=== PATIENT | female | born 1955 | race Caucasian/White ===

== ENCOUNTER 2023-10-29 17:21 | Inpatient (IN) | payer MEDICARE, OTHER ==
[~2023-10-29 17:21] MED LIST: Albuterol/Ipratropium 3.0-0.5 MG/3 ML Neb Soln ONE; Racepinephrine 2.25% 0.5 ML Neb Soln ONE; methylPREDNISolone Sodium Succinate 125 MG/2 ML SDV ONE
[2023-10-29] MEDS: Racepinephrine 2.25% 0.5 ML Neb Soln NEB ONE (17:21)
[2023-10-29] MEDS: methylPREDNISolone Sodium Succinate 125 MG/2 ML SDV IVPUSH ONE (17:21)
[2023-10-29] MEDS: Albuterol/Ipratropium 3.0-0.5 MG/3 ML Neb Soln NEB ONE (17:21)
[2023-10-29 17:31] LABS: BASOPHILS ABSOLUTE AUTO 0.03 K/uL (0.00-0.10); BASOPHILS PERCENT AUTO 0.2 % (0.1-1.3); EOSINOPHILS ABSOLUTE AUTO 0.06 K/uL (0.00-0.40); EOSINOPHILS PERCENT AUTO 0.4 % (0.0-5.4); HEMATOCRIT 39.7 % (34.3-46.0); HEMOGLOBIN 13.9 g/dL (11.2-15.5); IMMATURE GRAN ABSOLUTE AUTO 0.05 K/uL (0.00-0.23); IMMATURE GRAN PERCENT AUTO 0.4 % (0.0-0.7); LYMPHOCYTES ABSOLUTE AUTO 1.72 K/uL (0.8-3.3); LYMPHOCYTES PERCENT AUTO 12.6 % (11.4-47.7); MEAN CORPUSCULAR HEMOGLOBIN 31.4 pg (31.6-35.5); MEAN CORPUSCULAR VOLUME 89.8 fL (81.4-99.0); MONOCYTES ABSOLUTE AUTO 1.29 K/uL (0.20-0.90); MONOCYTES PERCENT AUTO 9.4 % (3.3-12.6); NEUTROPHILS ABSOLUTE AUTO 10.51 K/uL (1.0-7.6); PLATELET COUNT,PLT 276 K/uL (130-375); RED BLOOD CELL COUNT 4.42 M/uL (3.77-5.24); WHITE BLOOD CELL COUNT,WBC 13.7 K/uL (3.2-11.0)
[2023-10-29 17:35] LABS: BASE EXCESS ARTERIAL 6.3 mm/L; BICARBONATE,ARTERIAL 31.3 mmol/L (22.0-26.0); CARBOXYHEMOGLOBIN 5.3 % (0.0-1.6); METHEMOGLOBIN 0.9 %; O2 SATURATION ARTERIAL 96.8 % (95.0-98.0); OXYHEMOGLOBIN 90.8 %; PCO2 ARTERIAL 48.3 mmHg (35.0-42.0); PO2 ARTERIAL 76.9 mmHg (75.0-100.0); TOTAL HEMOGLOBIN 13.4 g/dL (12.0-16.0)
[2023-10-29 18:04] LABS: ALANINE AMINOTRANSFERASE,ALT 17 U/L (12-78); ALBUMIN 3.7 g/dL (3.4-5.0); ASPARTATE AMNIOTRANSFERASE,AST 15 U/L (15-37); BLOOD UREA NITROGEN,BUN 12 mg/dL (7-18); CALCIUM 8.5 mg/dL (8.5-10.1); CARBON DIOXIDE,CO2 31 mmol/L (21-32); CREATININE 0.8 mg/dL (0.6-1.0); ESTIMATED GFR 81 mL/min (>60); GLUCOSE RANDOM 109 mg/dL (74-106)
[2023-10-29 18:24] LABS: A/G RATIO 1.3 (1.2-2.2); ALKALINE PHOSPHATASE 81 U/L (46-116); BILIRUBIN TOTAL 0.4 mg/dL (0.2-1.0); PROTEIN TOTAL,TP 6.6 g/dL (6.4-8.2)
[2023-10-29 18:25] LABS: SODIUM,NA 129 mmol/L (140-148)
[2023-10-29 18:26] LABS: C-REACTIVE PROTEIN < 0.50 mg/dL (<0.50); POTASSIUM,K 3.3 mmol/L (3.6-5.2)
[2023-10-29] MEDS: Sodium Chloride 0.9% 10 ML Syringe FLUSH ONE (18:39)
[2023-10-29] MEDS: Iopamidol 755 Mg/ML 100 ML Bottle IV SCH (18:39)
[2023-10-29] MEDS: Sodium Chloride 0.9% 100 ML IV SCH (18:39)
[2023-10-29] MEDS ORDERED: Sodium Chloride 0.9% Inhalation Soln 3 ML Neb INH PRN (18:54)
[2023-10-29] MEDS: LORazepam 2 MG/ML SDV IVPUSH ONE (19:10)
[2023-10-29] MEDS: Sodium Chloride 0.9% 1,000 ML IV ONE (20:47)
[2023-10-29] MEDS ORDERED: Magnesium Hydroxide 400 MG/5 ML Susp 30 ML Cup PO PRN (21:13)
[2023-10-29] MEDS ORDERED: Acetaminophen 325 MG Tab PO PRN (21:13)
[2023-10-29] MEDS ORDERED: Sennosides/Docusate Sodium 50-8.6 MG Tab PO PRN (21:13)
[2023-10-29] MEDS ORDERED: Ondansetron 4 MG/2 ML SDV IV PRN (21:13)
[2023-10-29] MEDS ORDERED: methylPREDNISolone Sodium Succinate 40 MG/1 ML SDV IVPUSH SCH (21:30)
[2023-10-29] MEDS: Morphine 2 MG/ML SYRINGE IVPUSH PRN (22:04)
[2023-10-29] MEDS: LORazepam 2 MG/ML SDV IVPUSH PRN (22:21)
[2023-10-29] MEDS: Azithromycin 500 MG in Sodium Chloride 0.9% 250 ML IV SCH (22:24)
[2023-10-29] MEDS: Pantoprazole 40 MG Vial IVPUSH SCH (23:00)
[2023-10-29] MEDS: NS + KCl 20mEq/L 1,000 ML IV SCH (23:33)
[2023-10-30] MEDS: methylPREDNISolone Sodium Succinate 40 MG/1 ML SDV IVPUSH SCH (01:39)
[2023-10-30] MEDS: LORazepam 2 MG/ML SDV IVPUSH ONE (06:00)
[2023-10-30] MEDS: Albuterol/Ipratropium 3.0-0.5 MG/3 ML Neb Soln NEB PRN (06:58)
[2023-10-30] MEDS: LORazepam 2 MG/ML SDV IVPUSH PRN (07:05)
[2023-10-30 07:07] LABS: BASE EXCESS ARTERIAL 2.9 mm/L; BICARBONATE,ARTERIAL 34.4 mmol/L (22.0-26.0); METHEMOGLOBIN 0.8 %; O2 SATURATION ARTERIAL 98.4 % (95.0-98.0); OXYHEMOGLOBIN 93.7 %; TOTAL HEMOGLOBIN 14.9 g/dL (12.0-16.0)
[2023-10-30] MEDS: Metoprolol Tartrate 5 MG/5 ML SDV IVPUSH ONE (07:10)
[2023-10-30 07:12] LABS: PCO2 ARTERIAL 90.7 mmHg (35.0-42.0)
[2023-10-30 07:24] LABS: HEMATOCRIT 42.3 % (34.3-46.0); HEMOGLOBIN 14.1 g/dL (11.2-15.5); MEAN CORPUSCULAR HEMOGLOBIN 31.3 pg (31.6-35.5); MEAN CORPUSCULAR HGB CONC 33.3 g/dL (31.6-35.5); MEAN CORPUSCULAR VOLUME 93.8 fL (81.4-99.0); RED BLOOD CELL COUNT 4.51 M/uL (3.77-5.24); WHITE BLOOD CELL COUNT,WBC 11.6 K/uL (3.2-11.0)
[2023-10-30 07:45] LABS: A/G RATIO 1.1 (1.2-2.2); ALANINE AMINOTRANSFERASE,ALT 26 U/L (12-78); ALBUMIN 3.6 g/dL (3.4-5.0); ALKALINE PHOSPHATASE 76 U/L (46-116); ASPARTATE AMNIOTRANSFERASE,AST 15 U/L (15-37); BILIRUBIN TOTAL 0.2 mg/dL (0.2-1.0); BLOOD UREA NITROGEN,BUN 9 mg/dL (7-18); CALCIUM 7.8 mg/dL (8.5-10.1); CARBON DIOXIDE,CO2 37 mmol/L (21-32); CREATININE 0.6 mg/dL (0.6-1.0); EST CRCL DRUG DOSING (CG) 86.34 mL/min; ESTIMATED GFR 99 mL/min (>60); GLUCOSE RANDOM 168 mg/dL (74-106); PROTEIN TOTAL,TP 6.8 g/dL (6.4-8.2)
[2023-10-30 07:46] LABS: POTASSIUM,K 5.4 mmol/L (3.6-5.2); SODIUM,NA 133 mmol/L (140-148)
[2023-10-30] MEDS: Levothyroxine 50 MCG Tab PO SCH (08:12)
[2023-10-30] MEDS: Enoxaparin 40 MG/0.4 ML Syringe SUBCUT SCH (09:03)
[2023-10-30] MEDS: Sodium Chloride 0.9% 1,000 ML IV SCH (11:41)
[2023-10-30] MEDS ORDERED: Sodium Chloride 0.9% 10 ML SDV IV SCH (11:45)
[2023-10-30] MEDS ORDERED: Sodium Chloride 0.9% 1,000 ML IV SCH (12:00)
[2023-10-30] MEDS ORDERED: Albuterol 0.083% 2.5 MG/3 ML Neb Soln NEB PRN (12:01)
[2023-10-30 12:19] LABS: BASE EXCESS ARTERIAL 1.5 mm/L; BICARBONATE,ARTERIAL 37.5 mmol/L (22.0-26.0); CARBOXYHEMOGLOBIN 2.9 % (0.0-1.6); METHEMOGLOBIN 0.9 %; O2 SATURATION ARTERIAL 85.9 % (95.0-98.0); OXYHEMOGLOBIN 82.6 %; PO2 ARTERIAL 59.5 mmHg (75.0-100.0); TOTAL HEMOGLOBIN 14.9 g/dL (12.0-16.0)
[2023-10-30] MEDS: Levofloxacin/Dextrose 5%-Water 750 MG in Premix Bag 1 BAG IV SCH (13:10)
[2023-10-30] MEDS: Atropine Sulfate 1% Ophth 2 ML Drops SL PRN (14:25)
[2023-10-30] MEDS: Albuterol/Ipratropium 3.0-0.5 MG/3 ML Neb Soln NEB SCH (14:58)
== END 2023-10-30 14:52 | disposition expired | DRG 189 ==
LOC: JP.ED 17:21 → JP.ICU 20:11 → MERGE 20:11
PROVIDERS: ADMIT Hospitalist; ATTEND Hospitalist
PROC: 5A09357 Assistance with Respiratory Ventilation, Less than 24 Consecutive Hours, Continuous Positive Airway Pressure (ICD-10-PCS; principal; 2023-10-29)
PROC: 4A133R1 Monitoring of Arterial Saturation, Peripheral, Percutaneous Approach (ICD-10-PCS; 2023-10-29)
DX: J96.91 Respiratory failure, unspecified with hypoxia (principal); J96.92 Respiratory failure, unspecified with hypercapnia; R06.03 Acute respiratory distress; J96.21 Acute and chronic respiratory failure with hypoxia; E87.1 Hypo-osmolality and hyponatremia; J44.1 Chronic obstructive pulmonary disease with (acute) exacerbation; E87.29 Other acidosis; J44.0 Chronic obstructive pulmonary disease with (acute) lower respiratory infection; J96.22 Acute and chronic respiratory failure with hypercapnia; Z51.5 Encounter for palliative care; E87.6 Hypokalemia; Z66 Do not resuscitate; E03.9 Hypothyroidism, unspecified; J43.9 Emphysema, unspecified; J20.9 Acute bronchitis, unspecified; E87.5 Hyperkalemia; F17.200 Nicotine dependence, unspecified, uncomplicated; Z92.3 Personal history of irradiation; Z98.51 Tubal ligation status; Z85.118 Personal history of other malignant neoplasm of bronchus and lung; Z79.890 Hormone replacement therapy; Z98.890 Other specified postprocedural states; Z79.899 Other long term (current) drug therapy; Z92.21 Personal history of antineoplastic chemotherapy
CPT/HCPCS: 36415; 36600; 71045; 71045-26; 71275; 80053; 82803; 83605; 83735; 84145; 84484; 85025; 85027; 86140; 87040; 94640; 94660; 96374; 96375; 99223; 99238; 99285; 99285-25; A9270-GY; J0456; J1650; J1956; J2060; J2270; J2470; J2919; J3480; J3490; J7030; J7050; J7620; Q9967